=== PATIENT | male | born 1960 | race Hispanic/Latino ===

== ENCOUNTER 2019-11-06 08:17 | Inpatient (IN) | payer OTHER ==
[~2019-11-06] VITALS: Ht 170.2 cm; Wt 88.1 kg
[2019-11-06] MEDS ORDERED: ALBUTEROL INHALER 90MCG/INH IH ONE (10:00)
[2019-11-06 10:01] LABS: BASOPHILS % (AUTO) 0.2 % (0.0-5.0); HEMATOCRIT 35.6 % (42-54); LYMPHOCYTES % (AUTO) 9.8 % (21.0-51.0); MEAN CORPUSCULAR HEMOGLOBIN 27.8 pg (27.0-33.0); MEAN CORPUSCULAR HGB CONC 35.7 g/dL (32.0-36.0); MEAN CORPUSCULAR VOLUME 77.9 fL (79-99); MONOCYTES % (AUTO) 5.6 % (3.0-13.0); NEUTROPHILS % (AUTO) 83.1 % (40.0-77.0); PLATELET COUNT (AUTO) 401 K/uL (130-400); RED BLOOD CELL COUNT(AUTO) 4.57 MIL/uL (4.50-6.20); RED CELL DISTRIBUTION WIDTH 13.5 % (11.0-15.5); WHITE BLOOD COUNT (AUTO) 8.4 K/uL (4.8-10.8)
[2019-11-06 10:14] LABS: CARBON DIOXIDE 25 mmol/L (21-32); CREATININE 0.9 mg/dL (0.5-1.5); GLOMERULAR FILTR. RATE CALC 92 mL/min (>60); GLUCOSE,RANDOM 219 mg/dL (70-105); POTASSIUM 3.6 mmol/L (3.5-5.1); SODIUM SERUM 127 mmol/L (136-145); UREA NITROGEN, BLOOD 9 mg/dL (7-18)
[2019-11-06 10:20] LABS: CHLORIDE 90 mmol/L (101-111)
[2019-11-06 10:26] LABS: ALANINE AMINOTRANSFERASE 279 U/L (12-78); ASPARTATE AMINOTRANSFERASE 341 U/L (10-37); BILIRUBIN,TOTAL 0.9 mg/dL (0.2-1.0); CREATINE KINASE, TOTAL 320 U/L (21-232); MYOGLOBIN 123 ng/mL (10-92); TOTAL PROTEIN, SERUM 7.3 g/dL (6.0-8.3); TROPONIN I < 0.04 ng/mL (0.00-0.06)
[2019-11-06 10:39] LABS: INR 0.99 (0.85-1.15); PARTIAL THROMBOPLASTIN TIME 28.7 SEC (26.3-35.5); PROTHROMBIN TIME 10.7 SEC (9.6-11.6)
[2019-11-06] MEDS ORDERED: SODIUM CHLORIDE 0.9% 500ML 500 ML IV ONE (10:44)
[2019-11-06] MEDS ORDERED: METHYLPREDNISOLONE SOD SUCC 125MG/2ML VIAL ONE (11:12)
[2019-11-06] MEDS ORDERED: ENOXAPARIN SODIUM 40 MG/0.4 ML SYRINGE SQ ONE (11:57)
[2019-11-06] MEDS ORDERED: AZITHROMYCIN 500MG+NS 250ML 250 ML IV ONE (11:57)
[2019-11-06] MEDS ORDERED: 1/2 NORMAL SALINE 1,000 ML IV ONE (11:58)
[2019-11-06] MEDS ORDERED: FAMOTIDINE/PF 20 MG/2 ML VIAL IV ONE ×3 (11:58→20:36)
[2019-11-06] MEDS ORDERED: 1/2 NORMAL SALINE 1,000 ML IV SCH (12:00)
[2019-11-06] MEDS: AZITHROMYCIN 500MG+NS 250ML 250 ML IV SCH (12:00)
[2019-11-06] MEDS: ALBUTEROL INHALER 90MCG/INH IH SCH ×2 (14:00→20:00)
[2019-11-06 18:04] LABS: APPEARANCE,URINE Clear (CLEAR); BILIRUBIN,URINE Negative (NEGATIVE); COLOR,URINE Yellow (YELLOW); GLUCOSE, URINE (UA) >=1000 mg/dL (NEGATIVE); KETONES,URINE 40 mg/dL (NEGATIVE); LEUKOCYTE ESTERASE ,URINE Negative (NEGATIVE); NITRATE,URINE Negative (NEGATIVE); OCCULT BLOOD,URINE Moderate (NEGATIVE); PROTEIN,URINE POS 2+ mg/dL (NEGATIVE)
[2019-11-06 18:21] LABS: BACTERIA,URINE Rare /HPF (None Seen); MUCUS,URINE Few LPF (None Seen); RBC,URINE 0-1 /HPF (0-1); SQUAMOUS EPITHELIAL CELL,UR Few /HPF (0-2); WBC,URINE 0-1 /HPF (0-1)
[2019-11-06] MEDS ORDERED: METHYLPREDNISOLONE SOD SUCC 40MG/ML 1ML IVP SCH (18:45)
[2019-11-06] MEDS ORDERED: INSULIN HUMULIN R 100 UNIT/ML 3ML ONE (20:36)
[2019-11-06] MEDS: FAMOTIDINE/PF 20 MG/2 ML VIAL IV SCH (21:00)
[2019-11-07 06:09] LABS: HEMATOCRIT 39.2 % (42-54); MEAN CORPUSCULAR HGB CONC 35.7 g/dL (32.0-36.0); MEAN CORPUSCULAR VOLUME 78.4 fL (79-99); PLATELET COUNT (AUTO) 484 K/uL (130-400); RED CELL DISTRIBUTION WIDTH 13.3 % (11.0-15.5); WHITE BLOOD COUNT (AUTO) 6.8 K/uL (4.8-10.8)
[2019-11-07 06:39] LABS: POTASSIUM 4.3 mmol/L (3.5-5.1)
[2019-11-07 06:52] LABS: CRP QUANTITATIVE 87.1 mg/L (0.00-9.0); LYMPHOCYTES % (MANUAL) 6 % (22-44); MONOCYTES % (MANUAL) 4 % (2-9); SEGMENTED NEUTROPHILS % 90 % (40-70)
[2019-11-07 06:53] LABS: MAN.DIFF COMMENT-IMPRESSION MANUAL DIFFERENTIAL; PLATELET MORPHOLOGY COMMENT INCREASED
[2019-11-07] MEDS: ALBUTEROL INHALER 90MCG/INH IH SCH ×3 (08:00→20:00)
[2019-11-07] MEDS ORDERED: ENOXAPARIN SODIUM 40 MG/0.4 ML SYRINGE SQ ONE (08:51)
[2019-11-07] MEDS ORDERED: FAMOTIDINE/PF 20 MG/2 ML VIAL IV ONE (08:51)
[2019-11-07] MEDS ORDERED: METHYLPREDNISOLONE SOD SUCC 40MG/ML 1ML ONE ×2 (08:51→11:14)
[2019-11-07] MEDS: CEFTRIAXONE SODIUM 1 GM IV SCH (09:00)
[2019-11-07] MEDS: FAMOTIDINE/PF 20 MG/2 ML VIAL IV SCH ×2 (09:00→21:00)
[2019-11-07] MEDS ORDERED: ENOXAPARIN SODIUM 40 MG/0.4 ML SYRINGE SQ SCH (09:00)
[2019-11-07] MEDS ORDERED: AZITHROMYCIN 500MG+NS 250ML 250 ML IV ONE (11:14)
[2019-11-07] MEDS: AZITHROMYCIN 500MG+NS 250ML 250 ML IV SCH (12:00)
[2019-11-07] MEDS ORDERED: INSULIN HUMULIN R 100 UNIT/ML 3ML ONE ×2 (13:38→16:28)
[2019-11-07] MEDS ORDERED: SODIUM CHLORIDE 0.9% 500ML 500 ML IV ONE (14:48)
[2019-11-07] MEDS ORDERED: 1/2 NORMAL SALINE 1,000 ML IV ONE (14:50)
[2019-11-08 05:07] LABS: BASOPHILS % (AUTO) 0.2 % (0.0-5.0); LYMPHOCYTES % (AUTO) 5.5 % (21.0-51.0); MEAN CORPUSCULAR HEMOGLOBIN 27.5 pg (27.0-33.0); MEAN CORPUSCULAR HGB CONC 35.6 g/dL (32.0-36.0); MEAN CORPUSCULAR VOLUME 77.3 fL (79-99); MONOCYTES % (AUTO) 6.8 % (3.0-13.0); NEUTROPHILS % (AUTO) 85.9 % (40.0-77.0); PLATELET COUNT (AUTO) 457 K/uL (130-400); RED BLOOD CELL COUNT(AUTO) 4.66 MIL/uL (4.50-6.20); RED CELL DISTRIBUTION WIDTH 13.5 % (11.0-15.5); WHITE BLOOD COUNT (AUTO) 12.9 K/uL (4.8-10.8)
[2019-11-08 05:16] LABS: CREATININE 0.8 mg/dL (0.5-1.5)
[2019-11-08 05:34] LABS: CRP QUANTITATIVE 221.8 mg/L (0.00-9.0)
[2019-11-08] MEDS: ALBUTEROL INHALER 90MCG/INH IH SCH ×3 (08:00→20:46)
[2019-11-08] MEDS: CEFTRIAXONE SODIUM 1 GM IV SCH (09:00)
[2019-11-08] MEDS: FAMOTIDINE/PF 20 MG/2 ML VIAL IV SCH ×2 (09:00→20:00)
[2019-11-08] MEDS ORDERED: METHYLPREDNISOLONE SOD SUCC 40MG/ML 1ML ONE (09:03)
[2019-11-08] MEDS ORDERED: ENOXAPARIN SODIUM 40 MG/0.4 ML SYRINGE SQ ONE (09:03)
[2019-11-08] MEDS ORDERED: FAMOTIDINE/PF 20 MG/2 ML VIAL IV ONE (09:04)
[2019-11-08] MEDS ORDERED: CEFTRIAXONE SODIUM 1 GM ONE (09:04)
[2019-11-08] MEDS ORDERED: INSULIN HUMULIN R 100 UNIT/ML 3ML ONE ×2 (09:05→13:11)
[2019-11-08] MEDS: METHYLPREDNISOLONE SOD SUCC 125MG/2ML VIAL IVP SCH ×2 (10:30→18:00)
[2019-11-08] MEDS ORDERED: ENOXAPARIN SODIUM 40 MG/0.4 ML SYRINGE SQ SCH (10:45)
[2019-11-08] MEDS: INSULIN HUMULIN R 100 UNIT/ML 3ML SQ SCH ×3 (11:30→20:40)
[2019-11-08] MEDS: AZITHROMYCIN 500MG+NS 250ML 250 ML IV SCH (12:00)
[2019-11-08] MEDS ORDERED: POTASSIUM CHLORIDE 20MEQ/100ML 100 ML IV PRN (12:00)
[2019-11-08] MEDS ORDERED: LIDOCAINE HCL-MPF 1% 2ML VIAL IV PRN (12:00)
[2019-11-08] MEDS ORDERED: POTASSIUM CHLORIDE 20MEQ/100ML 100 ML IV ONE (13:10)
[2019-11-08] MEDS ORDERED: LIDOCAINE HCL-MPF 1% 2ML VIAL ONE (13:10)
[2019-11-08] MEDS ORDERED: AZITHROMYCIN 500MG+NS 250ML 250 ML IV ONE (13:10)
[2019-11-08 16:41] VITALS: BP 150/81
[2019-11-08] MEDS ORDERED: AMLO5TAB9 PO (17:06)
[2019-11-08] MEDS ORDERED: SITA1TAB6 PO (17:06)
[2019-11-08] MEDS ORDERED: ATOR10 PO (17:06)
[2019-11-08] MEDS ORDERED: OMEG-148 PO (17:26)
[2019-11-08] MEDS ORDERED: GLIP10TA9 PO (17:26)
[2019-11-08] MEDS ORDERED: AMLO10TA7 PO (17:26)
[2019-11-08] MEDS ORDERED: PIOG15TA66 PO (17:26)
[2019-11-08 18:00] VITALS: BP 164/102
[2019-11-08 19:00] VITALS: BP 149/91
[2019-11-08 20:00] VITALS: BP 150/90
[2019-11-08] MEDS ORDERED: INSULIN GLARGINE 100 UNITS/ML 10 ML VIAL SQ SCH (21:00)
[2019-11-08 23:35] VITALS: BP 93/55
[2019-11-09] VITALS (15 sets, daily range): BP systolic 106–166; BP diastolic 43–106
[2019-11-09] MEDS: METHYLPREDNISOLONE SOD SUCC 125MG/2ML VIAL IVP SCH ×3 (02:03→17:31)
[2019-11-09] MEDS ORDERED: HYDRALAZINE HCL 20 MG/ML VIAL ONE (03:15)
[2019-11-09 04:48] LABS: BASOPHILS % (AUTO) 0.3 % (0.0-5.0); HEMATOCRIT 38.4 % (42-54); LYMPHOCYTES % (AUTO) 7.6 % (21.0-51.0); MEAN CORPUSCULAR HEMOGLOBIN 27.4 pg (27.0-33.0); MEAN CORPUSCULAR HGB CONC 35.2 g/dL (32.0-36.0); MONOCYTES % (AUTO) 3.8 % (3.0-13.0); NEUTROPHILS % (AUTO) 86.2 % (40.0-77.0); PLATELET COUNT (AUTO) 583 K/uL (130-400); RED BLOOD CELL COUNT(AUTO) 4.92 MIL/uL (4.50-6.20); RED CELL DISTRIBUTION WIDTH 13.3 % (11.0-15.5)
[2019-11-09 05:04] LABS: ALBUMIN 2.1 g/dL (3.5-5.0); BILIRUBIN,TOTAL 0.5 mg/dL (0.2-1.0); CREATININE 0.6 mg/dL (0.5-1.5); MAGNESIUM 1.7 mg/dL (1.80-2.40); TOTAL PROTEIN, SERUM 7.1 g/dL (6.0-8.3)
[2019-11-09 05:08] LABS: HEMOGLOBIN A1C 9.9 % (4.0-6.0)
[2019-11-09] MEDS: HYDRALAZINE HCL 20 MG/ML VIAL IM SCH (06:13)
[2019-11-09] MEDS: INSULIN HUMULIN R 100 UNIT/ML 3ML SQ SCH ×4 (06:26→21:53)
[2019-11-09] MEDS ORDERED: POTASSIUM CHLORIDE 20 MEQ ERTAB PO ONE (07:49)
[2019-11-09] MEDS ORDERED: POTASSIUM CHLORIDE 20 MEQ ERTAB PO SCH (08:00)
[2019-11-09] MEDS ORDERED: MAGNESIUM 2GM PREMIX 50ML 50 ML IV SCH (08:00)
[2019-11-09] MEDS: ALBUTEROL INHALER 90MCG/INH IH SCH ×3 (08:53→21:50)
--- NOTE | 2019-11-09 09:00 | NUR ---
ENCOURAGING PRONE POSITION ON 5L NASAL CANNULA
[2019-11-09] MEDS: FAMOTIDINE/PF 20 MG/2 ML VIAL IV SCH ×2 (09:01→21:50)
[2019-11-09] MEDS: CEFTRIAXONE SODIUM 1 GM IV SCH (09:02)
[2019-11-09] MEDS: ENOXAPARIN SODIUM 100 MG/1 ML SQ SCH (09:04)
[2019-11-09] MEDS ORDERED: REMDESIVIR (INVESTIGATIONAL) 100 MG in SODIUM CHLORIDE 0.9% 250 ML IV SCH (10:30)
--- NOTE | 2019-11-09 11:12 | NUR ---
OUT OF BED AND BACK TO BED. PT DOES BETTER IN PRONE POSITION.
--- NOTE | 2019-11-09 11:15 | NUR ---
MIMI PLAN PATIENT IN COVID UNIT. NOT ABLE TO SEE. NO ANSWER ON PHONE. ABRIL WILL CONTINUE TO FOLLOW. Addendum: 11/09/19 at 1116 by USAMA CLAIRE RN CM Amended: Links added.
[2019-11-09] MEDS ORDERED: REMDESIVIR (INVESTIGATIONAL) 200 MG in SODIUM CHLORIDE 0.9% 250 ML IV ONE (11:30)
--- NOTE | 2019-11-09 13:30 | NUR ---
UP OUT OF BED TO SHOWER. PT WAS ABLE TO TAKE DEEP BREATHS AND BLOW HIS NOSE. SAYS HE FEELS BETTER
[2019-11-09] MEDS ORDERED: LIDOCAINE HCL-MPF 1% 2ML VIAL IV PRN (18:00)
[2019-11-09] MEDS ORDERED: POTASSIUM CHLORIDE 20 MEQ ERTAB PO PRN (19:30)
[2019-11-09] MEDS: ATORVASTATIN CALCIUM 20 MG TABLET PO SCH (21:50)
[2019-11-09] MEDS: INSULIN GLARGINE 100 UNITS/ML 10 ML VIAL SQ SCH (21:51)
[2019-11-10] VITALS (12 sets, daily range): BP systolic 109–166; BP diastolic 77–106
[2019-11-10] MEDS: METHYLPREDNISOLONE SOD SUCC 125MG/2ML VIAL IVP SCH ×3 (02:44→18:51)
[2019-11-10] MEDS: HYDRALAZINE HCL 20 MG/ML VIAL IM SCH ×2 (02:45→23:41)
[2019-11-10 05:16] LABS: BASOPHILS % (AUTO) 0.3 % (0.0-5.0); HEMATOCRIT 37.2 % (42-54); LYMPHOCYTES % (AUTO) 11.6 % (21.0-51.0); MEAN CORPUSCULAR HEMOGLOBIN 27.2 pg (27.0-33.0); MEAN CORPUSCULAR HGB CONC 34.9 g/dL (32.0-36.0); MEAN CORPUSCULAR VOLUME 77.8 fL (79-99); NEUTROPHILS % (AUTO) 77.3 % (40.0-77.0); NUCLEATED RED BLOOD CELLS 0.2 % (0.0-0.19); PLATELET COUNT (AUTO) 605 K/uL (130-400); RED BLOOD CELL COUNT(AUTO) 4.78 MIL/uL (4.50-6.20); RED CELL DISTRIBUTION WIDTH 13.3 % (11.0-15.5); WHITE BLOOD COUNT (AUTO) 9.7 K/uL (4.8-10.8)
[2019-11-10 05:30] LABS: ALBUMIN 2.2 g/dL (3.5-5.0); BILIRUBIN,TOTAL 0.4 mg/dL (0.2-1.0); CREATININE 0.8 mg/dL (0.5-1.5); CRP QUANTITATIVE 74.6 mg/L (0.00-9.0); POTASSIUM 3.3 mmol/L (3.5-5.1); TOTAL PROTEIN, SERUM 6.7 g/dL (6.0-8.3)
[2019-11-10] MEDS: GLIPIZIDE 5 MG TABLET PO SCH (06:59)
[2019-11-10] MEDS: INSULIN HUMULIN R 100 UNIT/ML 3ML SQ SCH ×4 (07:00→21:18)
[2019-11-10] MEDS: POTASSIUM CHLORIDE 20 MEQ ERTAB PO PRN ×3 (08:00→14:23)
[2019-11-10] MEDS: FAMOTIDINE/PF 20 MG/2 ML VIAL IV SCH ×2 (08:07→21:15)
[2019-11-10] MEDS: ALBUTEROL INHALER 90MCG/INH IH SCH ×3 (08:07→21:55)
[2019-11-10] MEDS: CEFTRIAXONE SODIUM 1 GM IV SCH (08:08)
[2019-11-10] MEDS: ENOXAPARIN SODIUM 100 MG/1 ML SQ SCH (08:10)
[2019-11-10] MEDS: AMLODIPINE BESYLATE 5 MG TAB PO SCH (08:12)
--- NOTE | 2019-11-10 09:00 | NUR ---
UP TO CHAIR FOR BREAKFAST. STILL DESATURATING WHEN SITTING UP. ENCOURAGED PRONE POSTIONING. PT WENT TO BED IN PRONE POSITION AND O2 SAT WENT UP
--- NOTE | 2019-11-10 12:33 | NUR ---
UP FROM PRONE POSITION. O2 SAT GOES DOWN WHEN SITTING
[2019-11-10] MEDS: ATORVASTATIN CALCIUM 20 MG TABLET PO SCH (21:16)
[2019-11-10] MEDS: INSULIN GLARGINE 100 UNITS/ML 10 ML VIAL SQ SCH (21:17)
--- NOTE | 2019-11-10 23:15 | NUR ---
TRANSFER REPORT GIVEN TO MONY PALMER. PATIENT TRANSFERRED FROM ROOM 219 TO ROOM 226 VIA WHEELCHAIR. AAOX3 BREATHING REGULAR AND UNLABORED ON 4LNC. DENIES PAIN OR SOB. NO ACUTE SIGNS OR SYMPTOMS OF DISTRESS NOTED. POSITIONED TO COMFORT IN BED. ORIENTED TO ROOM. CALL LIGHT IN REACH.
[2019-11-11] VITALS: BP 123/83
[2019-11-11] MEDS: METHYLPREDNISOLONE SOD SUCC 125MG/2ML VIAL IVP SCH ×3 (01:48→19:16)
[2019-11-11 03:53] VITALS: BP 145/99
[2019-11-11 05:46] LABS: BASOPHILS % (AUTO) 0.6 % (0.0-5.0); HEMATOCRIT 43.5 % (42-54); LYMPHOCYTES % (AUTO) 9.6 % (21.0-51.0); MEAN CORPUSCULAR HEMOGLOBIN 27.7 pg (27.0-33.0); MEAN CORPUSCULAR HGB CONC 34.9 g/dL (32.0-36.0); MEAN CORPUSCULAR VOLUME 79.2 fL (79-99); MONOCYTES % (AUTO) 4.7 % (3.0-13.0); NEUTROPHILS % (AUTO) 79.9 % (40.0-77.0); NUCLEATED RED BLOOD CELLS 0.2 % (0.0-0.19); PLATELET COUNT (AUTO) 663 K/uL (130-400); RED BLOOD CELL COUNT(AUTO) 5.49 MIL/uL (4.50-6.20); RED CELL DISTRIBUTION WIDTH 13.2 % (11.0-15.5); WHITE BLOOD COUNT (AUTO) 12.2 K/uL (4.8-10.8)
[2019-11-11] MEDS: GLIPIZIDE 5 MG TABLET PO SCH (06:09)
[2019-11-11 06:10] LABS: ALBUMIN 2.5 g/dL (3.5-5.0); BILIRUBIN,TOTAL 0.5 mg/dL (0.2-1.0); CREATININE 0.9 mg/dL (0.5-1.5); POTASSIUM 3.9 mmol/L (3.5-5.1); TOTAL PROTEIN, SERUM 7.6 g/dL (6.0-8.3)
[2019-11-11] MEDS: INSULIN HUMULIN R 100 UNIT/ML 3ML SQ SCH ×2 (06:10→12:32)
[2019-11-11] MEDS: ALBUTEROL INHALER 90MCG/INH IH SCH ×3 (08:00→20:00)
[2019-11-11 08:38] VITALS: BP 159/59
[2019-11-11] MEDS: CEFTRIAXONE SODIUM 1 GM IV SCH (09:50)
[2019-11-11] MEDS: AMLODIPINE BESYLATE 5 MG TAB PO SCH (09:51)
[2019-11-11] MEDS: ENOXAPARIN SODIUM 100 MG/1 ML SQ SCH (09:54)
[2019-11-11] MEDS: FAMOTIDINE/PF 20 MG/2 ML VIAL IV SCH ×2 (09:57→20:51)
[2019-11-11 11:35] VITALS: BP 151/100
[2019-11-11 17:26] VITALS: BP 150/97
[2019-11-11 20:00] VITALS: BP 156/99
[2019-11-11] MEDS: ATORVASTATIN CALCIUM 20 MG TABLET PO SCH (20:51)
[2019-11-12] VITALS: BP 144/92
[2019-11-12] MEDS: INSULIN HUMULIN R 100 UNIT/ML 3ML SQ SCH ×5 (01:46→21:06)
[2019-11-12] MEDS: INSULIN GLARGINE 100 UNITS/ML 10 ML VIAL SQ SCH ×2 (01:47→21:07)
[2019-11-12 04:00] VITALS: BP 131/97
[2019-11-12] MEDS: METHYLPREDNISOLONE SOD SUCC 125MG/2ML VIAL IVP SCH ×3 (04:34→18:54)
[2019-11-12 05:34] LABS: HEMATOCRIT 40.6 % (42-54); MEAN CORPUSCULAR HEMOGLOBIN 27.6 pg (27.0-33.0); MEAN CORPUSCULAR HGB CONC 35.2 g/dL (32.0-36.0); MEAN CORPUSCULAR VOLUME 78.4 fL (79-99); PLATELET COUNT (AUTO) 620 K/uL (130-400); RED BLOOD CELL COUNT(AUTO) 5.18 MIL/uL (4.50-6.20); RED CELL DISTRIBUTION WIDTH 13.4 % (11.0-15.5); WHITE BLOOD COUNT (AUTO) 13.6 K/uL (4.8-10.8)
[2019-11-12 05:46] LABS: ALBUMIN 2.3 g/dL (3.5-5.0); BILIRUBIN,TOTAL 0.4 mg/dL (0.2-1.0); CREATININE 0.7 mg/dL (0.5-1.5); CRP QUANTITATIVE 28.1 mg/L (0.00-9.0); POTASSIUM 3.7 mmol/L (3.5-5.1); TOTAL PROTEIN, SERUM 6.7 g/dL (6.0-8.3)
[2019-11-12 06:50] LABS: BAND NEUTROPHILS % (MANUAL) 4 % (0-2); LYMPHOCYTES % (MANUAL) 7 % (22-44); MAN.DIFF COMMENT-IMPRESSION MANUAL DIFFERENTIAL; MONOCYTES % (MANUAL) 4 % (2-9); SEGMENTED NEUTROPHILS % 85 % (40-70)
[2019-11-12 06:51] LABS: PLATELET MORPHOLOGY COMMENT INCREASED
[2019-11-12] MEDS: GLIPIZIDE 5 MG TABLET PO SCH (08:42)
[2019-11-12 08:44] VITALS: BP 150/83
[2019-11-12] MEDS: CEFTRIAXONE SODIUM 1 GM IV SCH (08:45)
[2019-11-12] MEDS: AMLODIPINE BESYLATE 5 MG TAB PO SCH (08:45)
[2019-11-12] MEDS: FAMOTIDINE/PF 20 MG/2 ML VIAL IV SCH ×2 (08:45→21:05)
[2019-11-12] MEDS: ENOXAPARIN SODIUM 100 MG/1 ML SQ SCH (08:46)
[2019-11-12] MEDS: ALBUTEROL INHALER 90MCG/INH IH SCH ×3 (08:46→21:08)
[2019-11-12 12:55] VITALS: BP 150/80
[2019-11-12 15:48] VITALS: BP 140/85
[2019-11-12] MEDS: METHYLPREDNISOLONE SOD SUCC 40MG/ML 1ML IVP SCH (21:00)
[2019-11-12] MEDS: ATORVASTATIN CALCIUM 20 MG TABLET PO SCH (21:05)
[2019-11-12 21:06] VITALS: BP 147/98
[2019-11-13 00:52] VITALS: BP 144/98
[2019-11-13 04:56] VITALS: BP 140/96
[2019-11-13] MEDS: INSULIN HUMULIN R 100 UNIT/ML 3ML SQ SCH ×4 (06:19→20:32)
[2019-11-13] MEDS: GLIPIZIDE 5 MG TABLET PO SCH (06:45)
[2019-11-13 08:00] VITALS: BP 132/83
[2019-11-13 08:05] LABS: HEMATOCRIT 41.3 % (42-54); MEAN CORPUSCULAR HEMOGLOBIN 27.5 pg (27.0-33.0); MEAN CORPUSCULAR HGB CONC 35.4 g/dL (32.0-36.0); MEAN CORPUSCULAR VOLUME 77.9 fL (79-99); NUCLEATED RED BLOOD CELLS 0.1 % (0.0-0.19); PLATELET COUNT (AUTO) 605 K/uL (130-400); RED CELL DISTRIBUTION WIDTH 13.7 % (11.0-15.5)
[2019-11-13] MEDS: AMLODIPINE BESYLATE 5 MG TAB PO SCH (08:34)
[2019-11-13] MEDS: ENOXAPARIN SODIUM 100 MG/1 ML SQ SCH (08:35)
[2019-11-13] MEDS: FAMOTIDINE/PF 20 MG/2 ML VIAL IV SCH ×2 (08:36→20:29)
[2019-11-13] MEDS: CEFTRIAXONE SODIUM 1 GM IV SCH (08:37)
[2019-11-13] MEDS: ALBUTEROL INHALER 90MCG/INH IH SCH ×3 (08:39→20:00)
[2019-11-13] MEDS: METHYLPREDNISOLONE SOD SUCC 40MG/ML 1ML IVP SCH ×2 (08:39→20:29)
[2019-11-13 09:01] LABS: ALBUMIN 2.4 g/dL (3.5-5.0); BILIRUBIN,TOTAL 0.5 mg/dL (0.2-1.0); CREATININE 0.7 mg/dL (0.5-1.5); CRP QUANTITATIVE 18.6 mg/L (0.00-9.0); POTASSIUM 3.3 mmol/L (3.5-5.1); TOTAL PROTEIN, SERUM 6.7 g/dL (6.0-8.3)
--- NOTE | 2019-11-13 10:16 | NUR ---
Assessment done see intervention. pt alert and oriented x3, sp02 95% on 2liter nasal canula. pt denies pain and resp distress while sitting up in chair at bedside. Pt compliant with all scheduled medications. Encouraged pt to deep breath while sitting in chair. Possessions within reach.
[2019-11-13 11:13] LABS: LYMPHOCYTES % (MANUAL) 13 % (22-44); MAN.DIFF COMMENT-IMPRESSION MANUAL DIFFERENTIAL; MONOCYTES % (MANUAL) 6 % (2-9); PLATELET MORPHOLOGY COMMENT INCREASED; SEGMENTED NEUTROPHILS % 81 % (40-70)
[2019-11-13 12:00] VITALS: BP 141/99
[2019-11-13 16:00] VITALS: BP 114/78
[2019-11-13 20:21] VITALS: BP 117/77
[2019-11-13] MEDS: ATORVASTATIN CALCIUM 20 MG TABLET PO SCH (20:29)
[2019-11-13] MEDS: INSULIN GLARGINE 100 UNITS/ML 10 ML VIAL SQ SCH (20:31)
[2019-11-13] MEDS: POTASSIUM CHLORIDE 20 MEQ ERTAB PO PRN (22:52)
[2019-11-14] MEDS: POTASSIUM CHLORIDE 20 MEQ ERTAB PO PRN ×2 (01:01→03:35)
[2019-11-14 01:13] VITALS: BP_SYST 124; BP_SYST 156; BP_DIAS 59; BP_DIAS 96
[2019-11-14 04:18] VITALS: BP 133/89
[2019-11-14 05:24] LABS: HEMATOCRIT 38.8 % (42-54); MEAN CORPUSCULAR HEMOGLOBIN 27.8 pg (27.0-33.0); MEAN CORPUSCULAR HGB CONC 35.1 g/dL (32.0-36.0); MEAN CORPUSCULAR VOLUME 79.3 fL (79-99); PLATELET COUNT (AUTO) 545 K/uL (130-400); RED BLOOD CELL COUNT(AUTO) 4.89 MIL/uL (4.50-6.20); RED CELL DISTRIBUTION WIDTH 13.9 % (11.0-15.5); WHITE BLOOD COUNT (AUTO) 12.8 K/uL (4.8-10.8)
[2019-11-14 05:37] LABS: ALBUMIN 2.2 g/dL (3.5-5.0); BILIRUBIN,TOTAL 0.4 mg/dL (0.2-1.0); CREATININE 0.8 mg/dL (0.5-1.5); CRP QUANTITATIVE 14.6 mg/L (0.00-9.0); TOTAL PROTEIN, SERUM 5.9 g/dL (6.0-8.3)
[2019-11-14 06:11] LABS: BAND NEUTROPHILS % (MANUAL) 4 % (0-2); EOSINOPHILS % (MANUAL) 1 % (1-6); LYMPHOCYTES % (MANUAL) 12 % (22-44); MAN.DIFF COMMENT-IMPRESSION MANUAL DIFFERENTIAL; METAMYELOCYTES % 1 % (0-0); MONOCYTES % (MANUAL) 11 % (2-9); SEGMENTED NEUTROPHILS % 71 % (40-70)
[2019-11-14 06:12] LABS: PLATELET MORPHOLOGY COMMENT SLIGHT INCREASED
[2019-11-14] MEDS: INSULIN HUMULIN R 100 UNIT/ML 3ML SQ SCH ×4 (06:16→20:37)
[2019-11-14] MEDS: GLIPIZIDE 5 MG TABLET PO SCH (06:35)
[2019-11-14 08:02] VITALS: BP 134/92
[2019-11-14] MEDS ORDERED: DEXAMETHASONE 4 MG TAB PO SCH (09:14)
[2019-11-14] MEDS: AMLODIPINE BESYLATE 5 MG TAB PO SCH (09:21)
[2019-11-14] MEDS: FAMOTIDINE/PF 20 MG/2 ML VIAL IV SCH ×2 (09:22→20:37)
[2019-11-14] MEDS: ENOXAPARIN SODIUM 100 MG/1 ML SQ SCH (09:22)
[2019-11-14] MEDS: CEFTRIAXONE SODIUM 1 GM IV SCH (09:22)
[2019-11-14] MEDS: ALBUTEROL INHALER 90MCG/INH IH SCH ×3 (09:22→20:00)
[2019-11-14 11:45] VITALS: BP 124/88
[2019-11-14 15:37] VITALS: BP 123/79
[2019-11-14] MEDS: INSULIN GLARGINE 100 UNITS/ML 10 ML VIAL SQ SCH (20:36)
[2019-11-14] MEDS: ATORVASTATIN CALCIUM 20 MG TABLET PO SCH (20:37)
[2019-11-14] MEDS: DEXAMETHASONE 4 MG TAB PO SCH (20:38)
[2019-11-14 20:58] VITALS: BP 143/96
[2019-11-15] VITALS (7 sets, daily range): BP systolic 127–158; BP diastolic 95–98
[2019-11-15] MEDS: INSULIN HUMULIN R 100 UNIT/ML 3ML SQ SCH ×4 (06:25→21:23)
[2019-11-15] MEDS: GLIPIZIDE 5 MG TABLET PO SCH (06:39)
[2019-11-15 07:50] LABS: MEAN CORPUSCULAR HEMOGLOBIN 27.7 pg (27.0-33.0); PLATELET COUNT (AUTO) 481 K/uL (130-400); RED BLOOD CELL COUNT(AUTO) 4.81 MIL/uL (4.50-6.20); WHITE BLOOD COUNT (AUTO) 11.3 K/uL (4.8-10.8)
[2019-11-15 08:25] LABS: ALBUMIN 2.3 g/dL (3.5-5.0); BILIRUBIN,TOTAL 0.4 mg/dL (0.2-1.0); CREATININE 0.6 mg/dL (0.5-1.5); CRP QUANTITATIVE 5.3 mg/L (0.00-9.0); POTASSIUM 3.6 mmol/L (3.5-5.1)
[2019-11-15 08:28] LABS: LYMPHOCYTES % (MANUAL) 11 % (22-44); MAN.DIFF COMMENT-IMPRESSION MANUAL DIFFERENTIAL; MONOCYTES % (MANUAL) 6 % (2-9); SEGMENTED NEUTROPHILS % 83 % (40-70)
[2019-11-15] MEDS: ENOXAPARIN SODIUM 100 MG/1 ML SQ SCH (08:35)
[2019-11-15] MEDS: DEXAMETHASONE 4 MG TAB PO SCH (08:36)
[2019-11-15] MEDS: AMLODIPINE BESYLATE 5 MG TAB PO SCH (08:36)
[2019-11-15] MEDS: FAMOTIDINE/PF 20 MG/2 ML VIAL IV SCH ×2 (08:37→21:22)
[2019-11-15] MEDS: ALBUTEROL INHALER 90MCG/INH IH SCH ×2 (08:37→12:38)
--- NOTE | 2019-11-15 15:24 | NUR ---
DR BALES ROUNDING 11A, PT 87% ROOM AIR WHILE SITTING UP INTO CHAIR AT REST. NOTIFIED CM FOR POSSIBLE NEED FOR HOME O2. PER INDUSTRIAL RELATIONS REPRESENTATIVE NO HOME 02 AVAILABLE AT TIME OF INTERACTION. PHYSICIAN MADE AWARE OF OXYGEN AVAILABILITY AND PER PHYSICIAN PT IS NOT BEING CLEARED FOR DISCHARGE AT THIS TIME.
--- NOTE | 2019-11-15 18:35 | NUR ---
rechecked pt oxygen sat. 91-92% room air, HR 101. spoke with Hospitalist, pt will remain overnight to monitor pt oxygen and heart rate on room air. Pt agreeable with plan of care.
[2019-11-15] MEDS: ATORVASTATIN CALCIUM 20 MG TABLET PO SCH (21:22)
[2019-11-15] MEDS: INSULIN GLARGINE 100 UNITS/ML 10 ML VIAL SQ SCH (21:24)
[2019-11-16 03:56] VITALS: BP 141/90
[2019-11-16 05:53] LABS: BASOPHILS % (AUTO) 0.5 % (0.0-5.0); EOSINOPHILS % (AUTO) 0.6 % (0.0-8.0); HEMATOCRIT 37.4 % (42-54); LYMPHOCYTES % (AUTO) 16.6 % (21.0-51.0); MEAN CORPUSCULAR HEMOGLOBIN 27.7 pg (27.0-33.0); MEAN CORPUSCULAR HGB CONC 35.3 g/dL (32.0-36.0); MEAN CORPUSCULAR VOLUME 78.6 fL (79-99); MONOCYTES % (AUTO) 8.7 % (3.0-13.0); NEUTROPHILS % (AUTO) 69.2 % (40.0-77.0); PLATELET COUNT (AUTO) 446 K/uL (130-400); RED BLOOD CELL COUNT(AUTO) 4.76 MIL/uL (4.50-6.20); RED CELL DISTRIBUTION WIDTH 14.2 % (11.0-15.5); WHITE BLOOD COUNT (AUTO) 13.2 K/uL (4.8-10.8)
[2019-11-16 06:12] LABS: ALBUMIN 2.3 g/dL (3.5-5.0); BILIRUBIN,TOTAL 0.4 mg/dL (0.2-1.0); CREATININE 0.6 mg/dL (0.5-1.5); TOTAL PROTEIN, SERUM 5.8 g/dL (6.0-8.3)
[2019-11-16] MEDS: INSULIN HUMULIN R 100 UNIT/ML 3ML SQ SCH ×2 (07:04→12:11)
[2019-11-16] MEDS: ALBUTEROL INHALER 90MCG/INH IH SCH ×2 (08:00→08:16)
[2019-11-16] MEDS: AMLODIPINE BESYLATE 5 MG TAB PO SCH (08:06)
[2019-11-16] MEDS: GLIPIZIDE 5 MG TABLET PO SCH (08:08)
[2019-11-16] MEDS: FAMOTIDINE/PF 20 MG/2 ML VIAL IV SCH (08:08)
[2019-11-16 08:09] VITALS: BP 142/82
[2019-11-16] MEDS: ENOXAPARIN SODIUM 100 MG/1 ML SQ SCH (08:10)
[2019-11-16] MEDS ORDERED: DEXAMETHASONE 4 MG TAB PO SCH (09:00)
[2019-11-16] MEDS: POTASSIUM CHLORIDE 20 MEQ ERTAB PO PRN (10:34)
[2019-11-16] MEDS: POTASSIUM CHLORIDE 20 MEQ ERTAB PO SCH ×2 (10:46→12:10)
--- NOTE | 2019-11-16 12:39 | NUR ---
RDSCREEN - LOS X 10 Pt admitted with SOB, Low grade fever, positive for COVID-19. Pt tolerating heart healthy diet order with no report of GI distress. PO intake at 100%. Pt LBM 11/14/19. Elevated BG levels. Pt pending possible D/C as per EMR. Recommend 60gm CCD Recommend 60mL ProMod QD RD to continue to monitor. Please notify as additional nutrition concerns arise. Thank you.
[2019-11-16] MEDS ORDERED: ASPI-556 PO (13:16)
[2019-11-16] MEDS ORDERED: APIX2.5T PO (13:16)
[2019-11-16] MEDS ORDERED: DEXA6TAB7 PO (13:18)
--- NOTE | 2019-11-16 14:18 | NUR ---
DISCHARGE INSTRUCTIONS, FOLLOW UP, AND MEDICATION RECOMMENDATIONS REVIEWED WITH PT. PT INSTRUCTED ON HANDWASHING, WHEN TO CALL THE PHYSICIAN, AND PREVENTION OF SPREADING COVID 19. PT VERBALIZED AN UNDERSTANDING OF REVIEWED MATERIAL, iv AND CAMPAIGN ASSISTANT WAS REMOVED. PT WILL BE ESCORTED TO EXIT WHERE HIS SPOUSE IS AWAITING TO TRANSPORT HIM HOME. BELONGINGS AND PAPERWORK IN HAND.
== END 2019-11-16 14:20 | disposition home or self-care (01) | DRG 177 ==
LOC: EDH 08:17 → EDHIP 08:18 → 2CH 11-08 16:45 → 2DH 11-10 23:00
PROVIDERS: ADMIT Family Medicine; ATTEND Family Medicine
PROC: 30233K0 Transfusion of Autologous Frozen Plasma into Peripheral Vein, Percutaneous Approach (ICD-10-PCS; principal; 2019-11-09)
DX: U07.1 COVID-19 (principal); J12.89 Other viral pneumonia; J96.01 Acute respiratory failure with hypoxia; E66.9 Obesity, unspecified; I10 Essential (primary) hypertension; E78.5 Hyperlipidemia, unspecified; E11.9 Type 2 diabetes mellitus without complications; Z83.3 Family history of diabetes mellitus; Z82.49 Family history of ischemic heart disease and other diseases of the circulatory system; Z68.30 Body mass index [BMI] 30.0-30.9, adult; Z79.84 Long term (current) use of oral hypoglycemic drugs
CPT/HCPCS: 36415; 71045; 80048; 80053; 81001; 82550; 82728; 82948; 83036; 83605; 83615; 83735; 83874; 84132; 84145; 84484; 85025; 85378; 85610; 85730; 86140; 86850; 86900; 86901; 86927; 87040; 87088; 87804; 93005; 94760; 99291; G0378; J0360; J0456; J0696; J1650; J1815; J2920; J2930; J3475; J3480; J3490; J7040; J8540; P9017; U0003